=== PATIENT | female | born 1990 | race Caucasian/White ===

== ENCOUNTER 2017-09-01 14:02 | Emergency (ER) | payer OTHER ==
--- NOTE | 2017-09-01 15:31 | ERPHSYRPT ---
- History of Present Illness Time Seen by Provider: 09/01/17 14:30 Source: patient Exam Limitations: clinical condition Patient Subjective Stated Complaint: pt reports constipation x 4 days-denies n/v -reports severe pain-denies burning or itching with urination Triage Nursing Assessment: pt pink warm and dry-tearful upon arrival-holding abd -denies rebound tenderness-resp easy and nonlabored when not crying Physician History: PATIENT COMPLAINS OF CONSTIPATION FOR 4 DAYS. DENIES FEVER, NAUSEA, ABDOMINAL PAIN OR URINARY SYMPTOMS. Timing/Duration: day(s) Severity: moderate Modifying Factors: Improves With: other (ATTEMPTED BOWEL MOVEMENT) Associated Symptoms: denies symptoms Allergies/Adverse Reactions: No Known Drug Allergies Allergy (Verified 09/01/17 14:17) Home Medications: No Home Meds [No Home Meds] 1 [facility] 08/21/15 [History] Hx Tetanus, Diphtheria Vaccination/Date Given: No Hx Influenza Vaccination/Date Given: No Hx Pneumococcal Vaccination/Date Given: No Immunizations Up to Date: Yes - Review of Systems Constitutional: No Fever, No Chills Eyes: No Symptoms Ears, Nose, & Throat: No Symptoms Respiratory: No Symptoms, No Cough, No Dyspnea Cardiac: No Chest Pain, No Edema, No Syncope Abdominal/Gastrointestinal: Other (CONSTIPATION), No Abdominal Pain, No Nausea, No Vomiting, No Diarrhea Genitourinary Symptoms: No Dysuria Musculoskeletal: No Symptoms, No Back Pain, No Neck Pain Skin: No Rash Neurological: No Symptoms, No Dizziness, No Focal Weakness, No Sensory Changes Psychological: No Symptoms Endocrine: No Symptoms All Other Systems: Reviewed and Negative - Past Medical History Pertinent Past Medical History: No - Past Surgical History Past Surgical History: No - Social History Smoking Status: Never smoker Exposure to second hand smoke: No Drug Use: none Patient Lives Alone: No - Female History Hx Last Menstrual Period: current Hx Now: No - Nursing Vital Signs Nursing Vital Signs: Initial Vital Signs Temperature 98.2 F 09/01/17 14:13 Pulse Rate 73 09/01/17 14:13 Respiratory Rate 18 09/01/17 14:13 Blood Pressure 146/70 09/01/17 14:13 O2 Sat by Pulse Oximetry 97 09/01/17 14:13 Pain Scale Pain Intensity 5 - Physical Exam General Appearance: no apparent distress, alert Eye Exam: PERRL/EOMI, eyes nml inspection Ears, Nose, Throat Exam: normal ENT inspection, TMs normal, pharynx normal, moist mucous membranes Neck Exam: normal inspection, non-tender, supple, full range of motion Respiratory Exam: normal breath sounds, lungs clear, No respiratory distress Cardiovascular Exam: regular rate/rhythm, normal heart sounds, normal peripheral pulses Gastrointestinal/Abdomen Exam: soft, normal bowel sounds, other (NONTENDER), No tenderness, No mass Rectal Exam: normal rectal tone, other (MARKED FIRM STOOL IN RECTAL VAULT) Back Exam: normal inspection, normal range of motion, No CVA tenderness, No vertebral tenderness Extremity Exam: normal inspection, normal range of motion, pelvis stable Neurologic Exam: alert, oriented x 3, cooperative, normal mood/affect, nml cerebellar function, nml station & gait, sensation nml, No motor deficits Skin Exam: normal color, warm, dry, No rash Lymphatic Exam: No adenopathy SpO2 Interpretation: normal SpO2: 97 Oxygen Delivery: Room Air - Radiology Exams Abdomen X-ray Interpretation: Interpreted by me (NO EVIDENCE OF BOWEL OBSTRUCTION OR FREE AIR) Ordered Tests: Active Orders 24 hr Category Date Time Status Enema STAT Care 09/01/17 15:33 Active OBSTR/ACUTE ABDOMEN SERIES Stat Exams 09/01/17 16:57 Completed HCG,QUALITATIVE URINE Stat Lab 09/01/17 15:30 Completed UA W/ MICROSCOPIC Stat Lab 09/01/17 15:30 Completed Medication Summary Discontinued Medications Generic Name Dose Route Start Last Admin Trade Name Freq PRN Reason Stop Dose Admin Rho Immune Globulin 300 mcg 09/01/17 18:04 Rhogam Plus 300 Mcg IM 09/01/17 18:05 .ONCE ONE Lab/Rad Data: Laboratory Results 09/01/17 09/01/17 Range/Units 15:30 15:30 Ur Collection Type CCMS Urine Color YELLOW (YELLOW) Urine Appearance CLEAR (CLEAR) Urine pH 5.0 (5-6) Ur Specific [place] 1.025 (1.005-1.025) Urine Protein NEGATIVE (Negative) Urine Ketones SMALL (NEGATIVE) Urine Blood 50 (0-5) Umair/ul Urine Nitrite NEGATIVE (NEGATIVE) Urine Bilirubin NEGATIVE (NEGATIVE) Urine Urobilinogen NORMAL (0-1) mg/dL Ur Leukocyte Esterase NEGATIVE (NEGATIVE) Urine Microscopic RBC 0-2 (0-2) /HPF Urine Microscopic WBC 0-2 (0-5) /HPF Ur Epithelial Cells FEW (FEW) /HPF Amorphous Crystals FEW (NEGATIVE) /HPF Urine Mucus SLIGHT (NEGATIVE) /HPF Urine Culture Reflexed NO (NO) Urine Glucose NEGATIVE (NEGATIVE) mg/dL Urine HCG, Qual NEGATIVE (Negative) Specimen Received 09-01-17 1600 - Progress Progress: improved Progress Note: 09/01/17 17:58 ADMINISTERED SOAP SUDS ENEMA WITH MODERATE RESULTS Counseled pt/family regarding: lab results, diagnosis, need for follow-up, rad results - Departure Time of Disposition: 18:14 Departure Disposition: Home Clinical Impression: CONSTIPATION Condition: Stable Critical Care Time: No Referrals: SHAYE CROWELL [Primary Care Provider] - Additional Instructions: TAKE 1/2 BOTTLE OF MAGNESIUM CITRATE DAILY FOR 2 DAYS. CONTINUE STOOL SOFTNER 2 -3 TIMES DAILY
[2017-09-01 15:45] VITALS: BP 122/62
[2017-09-01 15:46] VITALS: PULSE 88
[2017-09-01 16:10] LABS: Amourphous Crystal FEW /HPF (NEGATIVE); Appearance CLEAR (CLEAR); Bilirubin NEGATIVE (NEGATIVE); Blood 50 Ery/ul (0-5); Epithelial Cells FEW /HPF (FEW); Glucose NEGATIVE (NEGATIVE); Ketones SMALL (NEGATIVE); Leukocyte Esterase NEGATIVE (NEGATIVE); Mucus SLIGHT /HPF (NEGATIVE); Nitrite NEGATIVE (NEGATIVE); Protein,Urine Dip NEGATIVE (Negative); RBC 0-2 /HPF (0-2); Specific Gravity 1.025 (1.005-1.025); Urobilinogen NORMAL mg/dL (0-1); WBC 0-2 /HPF (0-5)
--- NOTE | 2017-09-01 17:07 | XRAY ---
Indication: Constipation. Comparison: Chest exam June 17, 2007. 2 views of the abdomen demonstrates mild air distended small bowel loops and transverse colon with mild fluid leveling, ileus versus enterocolitis. Solid organs and osseous structures unremarkable. PA chest again demonstrates normal heart, lungs, and bony thorax.
[2017-09-01 18:03] VITALS: O2SAT 97
[2017-09-01] MEDS ORDERED: Rhogam Plus 300 MCG IM ONE (18:04)
== END 2017-09-01 18:15 | disposition home or self-care (01) ==
LOC: ED 14:02
DX: K59.00 Constipation, unspecified (principal)
CPT/HCPCS: 74022; 81000; 84703; 99283; 99284; J2790

== ENCOUNTER 2018-06-13 13:54 | Emergency (ER) | payer MEDICAID, OTHER ==
[2018-06-13 14:12] VITALS: BP 114/55; PULSE 78; O2SAT 98
--- NOTE | 2018-06-13 14:56 | ERPHSYRPT ---
- History of Present Illness Time Seen by Provider: 06/13/18 14:50 Source: patient Exam Limitations: no limitations Patient Subjective Stated Complaint: pt reports not feeling baby move as often as she ought to. pt states she is 19 weeks with brittany of 11/07/18. pt reports starting to feel baby move approx 2 weeks ago, but has not been feeling move daily. pt states "i feel like baby should be moving more". . denies vaginal bleeding or changes in discharge. denies pain. pt adds "i've been having migrains 3xweek" Triage Nursing Assessment: pink/warm/dry,resp easy, a&ox4, steady gait, no distress noted at this time. Physician History: The patient is a 28-year-old female at 19 weeks with her complaining that she doesn't feel her baby move as much as she thinks it should. She does feel it move daily. She hasn't seen an OB doctor since 11 weeks. She has not had appropriate insurance until recently. She is scheduled to see her OB doctor on 06/22/18. She denies cramping or vaginal discharge. She is having no problems. She is just becoming worried because she hasn't heard the heartbeat at a doctor's visit in a long time. Timing/Duration: today Severity: mild Modifying Factors: Improves With: nothing Associated Symptoms: denies symptoms Allergies/Adverse Reactions: No Known Drug Allergies Allergy (Verified 06/13/18 14:01) Hx Tetanus, Diphtheria Vaccination/Date Given: Yes Hx Influenza Vaccination/Date Given: No Hx Pneumococcal Vaccination/Date Given: No Immunizations Up to Date: Yes - Review of Systems Constitutional: No Fever, No Chills Eyes: No Symptoms Ears, Nose, & Throat: No Symptoms Respiratory: No Cough, No Dyspnea Cardiac: No Chest Pain, No Edema, No Syncope Abdominal/Gastrointestinal: No Abdominal Pain, No Nausea, No Vomiting, No Diarrhea Genitourinary Symptoms: No Dysuria Musculoskeletal: No Back Pain, No Neck Pain Skin: No Rash Neurological: No Dizziness, No Focal Weakness, No Sensory Changes Psychological: No Symptoms Endocrine: No Symptoms Hematologic/Lymphatic: No Symptoms Immunological/Allergic: No Symptoms All Other Systems: Reviewed and Negative - Past Medical History Pertinent Past Medical History: Yes Psycho-Social History: Depression - Past Surgical History Past Surgical History: No - Social History Smoking Status: Never smoker Exposure to second hand smoke: No Drug Use: marijuana Patient Lives Alone: No - Female History Hx Last Menstrual Period: "2nd week of january" Hx Now: Yes Expected Date of Delivery: 11/07/18 Gestational Age: 19 weeks - Nursing Vital Signs Nursing Vital Signs: Initial Vital Signs Temperature 98.4 F 06/13/18 14:03 Pulse Rate 78 06/13/18 14:03 Respiratory Rate 16 06/13/18 14:03 Blood Pressure 114/55 06/13/18 14:03 O2 Sat by Pulse Oximetry 98 06/13/18 14:03 Pain Scale Pain Intensity 0 - Physical Exam General Appearance: no apparent distress, alert Eye Exam: PERRL/EOMI, eyes nml inspection Ears, Nose, Throat Exam: normal ENT inspection, TMs normal, pharynx normal, moist mucous membranes Neck Exam: normal inspection, non-tender, supple, full range of motion Respiratory Exam: normal breath sounds, lungs clear, No respiratory distress Cardiovascular Exam: regular rate/rhythm, normal heart sounds, normal peripheral pulses Gastrointestinal/Abdomen Exam: soft, normal bowel sounds, No tenderness, No mass Pelvic Exam: not done Rectal Exam: not done Back Exam: normal inspection, normal range of motion, No CVA tenderness, No vertebral tenderness Extremity Exam: normal inspection, normal range of motion, pelvis stable Neurologic Exam: alert, oriented x 3, cooperative, normal mood/affect, nml cerebellar function, nml station & gait, sensation nml, No motor deficits Skin Exam: normal color, warm, dry, No rash Lymphatic Exam: No adenopathy SpO2 Interpretation: normal SpO2: 98 O2 Delivery: Room Air - Progress Progress Note: 06/13/18 15:00 FHT 172 by doppler. - Departure Time of Disposition: 15:00 Departure Disposition: Home Clinical Impression: Condition: Stable Critical Care Time: No Referrals: DONAVAN MCKEON MD [Primary Care Provider] - Additional Instructions: You are and we heard the heart by Doppler at 172 bpm. Please follow-up with your OB doctor as scheduled on 06/22/18.
== END 2018-06-13 15:09 | disposition home or self-care (01) ==
LOC: ED 13:54
DX: Z34.92 Encounter for supervision of normal pregnancy, unspecified, second trimester (principal)
CPT/HCPCS: 99283

== ENCOUNTER 2018-10-27 04:49 | Inpatient (IN) | payer OTHER ==
[2018-10-27] MEDS ORDERED: PITOCIN 30 UNITS/ LR 500 ML 500 ML IV SCH ×2 (05:00)
[2018-10-27] MEDS ORDERED: BRETHINE 1 MG/ML SQ PRN (05:00)
[2018-10-27 05:23] LABS: Hematocrit 40.6 % (35-47); Hemoglobin 14.1 gm/dl (12.0-16.0); Mean Cell Volume 94.6 fl (78-100); Mean Corpuscular Hemoglobin 32.9 pg (26-32); Mean Corpuscular Hgb Concent. 34.7 g/dl (32-36); Mean Platelet Volume 11.9 fl (6-9.5); Platelet Count 166 K/mm3 (150-450); Red Blood Count 4.29 M/mm3 (4.1-5.4); Red Cell Distribution Width 13.4 % (11.5-14.0); White Blood Count 12.5 K/mm3 (4.0-10.5)
[2018-10-27 05:50] LABS: BAND 1 % (0.0-2.0); Lymphocytes 12 % (24-44); Monocyte 6 % (0.0-12.0); Neutrophils 81 % (36.0-66.0); Platelet Estimate NORMAL (NORMAL); Total Cells Counted 100
[2018-10-27] MEDS: Lactated Ringers 1,000 ML IV SCH ×2 (06:00→21:28)
[2018-10-27 08:00] LABS: Amphetamine,Urine NEGATIVE (NEGATIVE); Barbiturate,Urine NEGATIVE (NEGATIVE); Benzodiazepine,Urine NEGATIVE (NEGATIVE); Cocaine,Urine NEGATIVE (NEGATIVE); Methadone,Urine NEGATIVE (NEGATIVE); Opiate,Urine NEGATIVE (NEGATIVE); PCP,Urine NEGATIVE (NEGATIVE); THC,Urine POSITIVE (NEGATIVE)
[2018-10-27] MEDS ORDERED: Ephedrine Sulfate 50 MG/ML IV PRN (09:45)
[2018-10-27] MEDS ORDERED: Lactated Ringers 1,000 ML IV ONE (09:45)
[2018-10-27] MEDS ORDERED: XYLOCAINE 2%/Epi 1:200000 20ML VIAL MPF IJ SCH (10:00)
[2018-10-27] MEDS: OB EPIDURAL NAROPIN/SUFENTANIL IN NACL EPIDURAL PRN ×2 (10:14→19:45)
[2018-10-27 13:32] VITALS: O2SAT 100
[2018-10-27] MEDS ORDERED: XYLOCAINE 1% HCL 20 ML MDV ONE (23:51)
[2018-10-28] MEDS ORDERED: LANSINOH 40 GM TOP PRN (00:54)
[2018-10-28] MEDS ORDERED: Dulcolax 10 MG SUPP PR PRN (00:54)
[2018-10-28] MEDS ORDERED: CORTISONE 1% CREAM TP PRN (00:54)
[2018-10-28] MEDS ORDERED: Dermoplast Spray TP PRN (00:54)
[2018-10-28] MEDS ORDERED: TYLENOL EXTRA STRENGTH 500 MG PO PRN (00:54)
[2018-10-28] MEDS ORDERED: Anucort-HC SUPPOSITORY PR PRN (00:54)
[2018-10-28] MEDS ORDERED: TUCKS TP PRN (00:54)
[2018-10-28] MEDS ORDERED: Mylicon 80MG PO PRN (00:54)
[2018-10-28] MEDS: NORCO 5/325 MG PO PRN ×4 (02:56→21:04)
[2018-10-28] MEDS ORDERED: Adacel Vial IM ONE (10:00)
[2018-10-28] MEDS: FERREX 150 PO SCH (11:30)
[2018-10-28] MEDS: Colace 100 MG PO SCH ×2 (11:30→21:04)
[2018-10-28] MEDS: MOTRIN 400 MG PO PRN ×2 (11:38→17:42)
[2018-10-28 12:37] LABS: BASOPHIL % 0.2 % (0.0-0.4); Basophil (Absolute #) 0.02 (0-0.4); Eosinophil % 0.3 % (0.00-5.0); Eosinophil (Absolute #) 0.04 (0-0.5); Granulocyte Absolute (ANC) 8.37 (1.4-6.9); Granulocytes % 70.5 % (36.0-66.0); Hematocrit 37.1 % (35-47); Hemoglobin 12.8 gm/dl (12.0-16.0); Lymphocyte (Absolute #) 2.41 (1.0-4.6); Lymphocytes % 20.3 % (24.0-44.0); Mean Cell Volume 95.6 fl (78-100); Mean Corpuscular Hgb Concent. 34.5 g/dl (32-36); Mean Platelet Volume 11.7 fl (6-9.5); Monocyte (Absolute #) 1.03 (0.0-1.3); Monocytes % 8.7 % (0.0-12.0); Platelet Count 125 K/mm3 (150-450); Red Blood Count 3.88 M/mm3 (4.1-5.4); Red Cell Distribution Width 13.2 % (11.5-14.0); White Blood Count 11.9 K/mm3 (4.0-10.5)
[2018-10-28 12:38] LABS: Mean Corpuscular Hemoglobin 32.9 pg (26-32)
[2018-10-29] MEDS: MOTRIN 400 MG PO PRN (01:01)
[2018-10-29] MEDS: NORCO 5/325 MG PO PRN ×3 (04:35→14:10)
[2018-10-29] MEDS: FERREX 150 PO SCH (09:22)
[2018-10-29] MEDS: Colace 100 MG PO SCH (09:22)
[2018-10-29] MEDS ORDERED: PROVENTIL COMMON CANISTER IH PRN (09:29)
--- NOTE | 2018-10-29 09:30 | PCM.NOTE ---
Date and Time: 10/29/18926 Subjective Assessment: This morning pt is c/o pain in the lateral proximal thighs and bilat lower back. It predated the but has gotten worse. Better with norco and ibuprofen. - Review of Systems Constitutional: No Fever Respiratory: Cough Objective Exam General Appearance: no apparent distress, alert, obese Neurologic Exam: oriented x 3, cooperative Skin Exam: normal color, warm, dry, No rash Ears, Nose, Throat Exam: moist mucous membranes Respiratory Exam: normal breath sounds, wheezing, No crackles/rales, No rhonchi Cardiovascular Exam: regular rate/rhythm, normal heart sounds, No murmur Gastrointestinal/Abdomen Exam: soft, tenderness (mild), other (fundus firm under umbilicus) Extremity Exam: normal inspection, No pedal edema, No swelling OBJECTIVE DATA Vital Signs: Vital Signs - 24 hr Temp Pulse Resp BP 10/29/18 03:00 97.8 F 81 20 116/54 10/28/18 20:00 98.3 F 82 20 152/65 10/28/18 14:00 97.9 F 90 20 135/63 Pain Assessment - Last Documented Pain Intensity [Anterior/ 4 Posterior] Pain Intensity 4 Pain Scale Used 0-10 Pain Scale Intake and Output: Intake & Output 10/26/18 10/27/18 10/28/18 10/29/18 11:59 11:59 11:59 11:59 Intake Total 2824 1800 Output Total 1300 Balance 1524 1800 Weight 117.934 kg Lab Results: Lab Results-Last 24 Hours 10/28/18 Range/Units 12:00 WBC 11.9 H (4.0-10.5) K/mm3 RBC 3.88 L (4.1-5.4) M/mm3 Hgb 12.8 (12.0-16.0) gm/dl Hct 37.1 (35-47) % MCV 95.6 (78-100) fl MCH 32.9 H (26-32) pg MCHC 34.5 (32-36) g/dl RDW 13.2 (11.5-14.0) % Plt Count 125 L (150-450) K/mm3 MPV 11.7 H (6-9.5) fl Gran % 70.5 H (36.0-66.0) % Eos # (Auto) 0.04 (0-0.5) Absolute Lymphs (auto) 2.41 (1.0-4.6) Absolute Monos (auto) 1.03 (0.0-1.3) Lymphocytes % 20.3 L (24.0-44.0) % Monocytes % 8.7 (0.0-12.0) % Eosinophils % 0.3 (0.00-5.0) % Basophils % 0.2 (0.0-0.4) % Absolute Granulocytes 8.37 H (1.4-6.9) Basophils # 0.02 (0-0.4) Assessment/Plan (1) Vaginal delivery Current Visit: Yes Status: Acute Code(s): O80 - ENCOUNTER FOR FULL-TERM UNCOMPLICATED DELIVERY (2) Low back pain Current Visit: Yes Status: Acute Qualifiers: Chronicity: chronic Back pain laterality: bilateral Sciatica presence: without sciatica Qualified Code(s): M54.5 - Low back pain; G89.29 - Other chronic pain Assessment & Plan: exercises printed, most probably appropriate for later in her recover. Continue meds, try heat. Code(s): M54.5 - LOW BACK PAIN (3) Wheezing Current Visit: Yes Status: Acute Code(s): R06.2 - WHEEZING
--- NOTE | 2018-10-29 13:14 | PCM.DS ---
Discharge Summary Date of Admission: 10/27/18 09:30 Admitting Physician: DONAVAN MCKEON Primary Care Provider: DONAVAN MCKEON Allergies Allergies No Known Drug Allergies Allergy (Verified 06/13/18 14:01) Hospital Summary - Hospital Course Hospital Course: Pt came in 28 yo at 38w 4d in spontaneous labor. Fluid was meconium stained. She easily delivered a viable 9lb 1 oz baby boy (for full details, see Dr. Mckeon' delivery note). Mom is complaining of some bilat lower back pain and bilat pain in the proximal thighs laterally. This pain is chronic but worse with and delivery. She has been taking ibuprofen and tylenol for pain. Post her hgb is 12.8. She is . labs: GBS neg, O+, Ab neg. RPR, HBsAg, HepCAb, HIV negative. NG/CT neg. Rubella Immune. Failed 1 hr OGTT. Baby to be transferred to NICU today with tachypnea, rule out sepsis. Mom to be discharged early in order to follow him up to [facility] ([facility]). - Vitals & Intake/Output Vital Signs: Vital Signs Temperature 97.8 F 10/29/18 03:00 Pulse Rate 81 10/29/18 03:00 Respiratory Rate 20 10/29/18 03:00 Blood Pressure 116/54 10/29/18 03:00 O2 Sat by Pulse Oximetry 100 10/27/18 13:15 Intake & Output: Intake & Output 10/27/18 10/28/18 10/29/18 10/30/18 11:59 11:59 11:59 11:59 Intake Total 2824 1800 Output Total 1300 Balance 1524 1800 Weight 117.934 kg - Lab Result Diagrams: 10/28/18 12:00 Micro Results-Entire Visit: Microbiology 10/27/18 Unknown Urine Culture - Final Catherized NO GROWTH - Procedures and Test Procedures and Tests throughout Hospitalization: Therapy Orders & Screens 10/28/18 02:07 Standby Routine Comment: Diagnosis: Induction of Labor 10/29/18 09:29 Respiratory MDI QID Comment: Diagnosis: Induction of Labor Discharge Exam General Appearance: no apparent distress, alert Neurologic Exam: oriented x 3, cooperative Ears, Nose, Throat Exam: moist mucous membranes Respiratory Exam: normal breath sounds, wheezing (scattered), No crackles/rales , No rhonchi Cardiovascular Exam: regular rate/rhythm, normal heart sounds, No murmur Gastrointestinal/Abdomen Exam: soft, tenderness (mild ttp), other (fundus firm under umbilicus) Extremity Exam: normal inspection, No pedal edema, No swelling Skin Exam: normal color, warm, dry, No rash Final Diagnosis/Problem List - Final Discharge Diagnosis/Problem (1) Vaginal delivery Current Visit: Yes Status: Acute Assessment & Plan: she is recovering well. Will be 48h post delivery just after midnight but will d/c home now since her baby is going to the NICU now. Code(s): O80 - ENCOUNTER FOR FULL-TERM UNCOMPLICATED DELIVERY (2) Low back pain Current Visit: Yes Status: Acute Code(s): M54.5 - LOW BACK PAIN (3) Wheezing Current Visit: Yes Status: Acute Assessment & Plan: inhaler will be ordered at pharmacy. Code(s): R06.2 - WHEEZING - Discharge Disposition: Home, Self-Care Condition: Good Prescriptions: New Albuterol Sulfate [Albuterol Sulfate Hfa] 8.5 gm IH Q4H PRN #1 [id number] PRN Reason: cough/wheeze Ibuprofen 600 mg PO TID PRN #35 tablet PRN Reason: Pain Hydrocodone/APAP 5-325 Tab^^^ [[place] 5-325 Tablet^^^] 1 each PO Q4H PRN #30 tablet MDD 6 PRN Reason: Severe Pain Continue Vits W-Ca,Fe,FA(<1Mg) [] 1 tab PO DAILY Follow up with: DONAVAN MCKEON MD [Primary Care Provider] - 1 Week
[2018-10-29 16:20] VITALS: BP 132/69
[2018-10-29 17:11] VITALS: PULSE 95
== END 2018-10-29 14:10 | disposition home or self-care (01) | DRG 807 ==
LOC: OB 04:49 → OBSVTOIN 09:30
PROVIDERS: ADMIT Family Medicine; ATTEND Family Medicine
PROC: 10E0XZZ Delivery of Products of Conception, External Approach (ICD-10-PCS; principal; 2018-10-28)
DX: O80 Encounter for full-term uncomplicated delivery (principal); Z37.0 Single live birth; Z3A.38 38 weeks gestation of pregnancy; M54.5 Low back pain; R06.2 Wheezing
CPT/HCPCS: 36415; 76805; 80307; 81003; 85025; 87086; 87340; 90715; 94799; 96372; G0378; J2590; J2795; A9270-GY

== ENCOUNTER 2024-01-05 20:15 | Emergency (ER) | payer OTHER ==
--- NOTE | 2024-01-05 22:10 | ERPHSYRPT ---
- History of Present Illness Time Seen by Provider: 01/05/24 21:55 Source: patient Exam Limitations: no limitations Patient Subjective Stated Complaint: swelling in bilat. lower extremeties. Triage Nursing Assessment: Pt brought to ED by with c/o of swelling in bilateral lower extremeties, rates pain 4/10. vitals wnl, skin warm and dry, p ulses normal, gait steady, denies taking medications at home, patient doesn't appear to be in any distress at this time. Physician History: 33-year-old female no significant past medical history presents to emergency department for evaluation of bilateral lower extremity swelling over a week's time. Patient states the swelling has gotten progressively worse. Mild shortn ess of breath. No nausea vomiting or diaphoresis. Patient denied pain to Dr. Nichols however he she informed nurse that she had pain rated 4. Negative Kizzy bilaterally. Patient states her legs were swollen 1 time before and that during her last . Patient states she has otherwise been well. Patient works at [employer] and states she stands on her feet all day long. But this level of swelling is unusual. at bedside. They voiced no other complaints or concerns at this time. Portions of this note were created with voice recognition technology. There may be grammatical, spelling, punctuation or sound alike errors Timing/Duration: week(s) (1 week) Severity: moderate Modifying Factors: Improves With: nothing Associated Symptoms: shortness of breath (Mild shortness of breath) Allergies/Adverse Reactions: No Known Drug Allergies Allergy (Verified 01/05/24 21:50) Home Medications: No Reportable Medications [No Reported Medications] 01/05/24 [History] Hx Tetanus, Diphtheria Vaccination/Date Given: No Hx Influenza Vaccination/Date Given: No Hx Pneumococcal Vaccination/Date Given: No Travel Risk - International Travel Have you traveled outside of the country in past 3 weeks: No - Emerging Infectious Disease Are you exhibiting symptoms associated with any current EIDs: No - Review of Systems Constitutional: No Symptoms, No Fever, No Chills Eyes: No Symptoms Ears, Nose, & Throat: No Symptoms Respiratory: No Symptoms, No Cough, No Dyspnea Cardiac: No Symptoms, No Chest Pain, No Edema, No Syncope Abdominal/Gastrointestinal: No Symptoms, No Abdominal Pain, No Nausea, No Vomiting, No Diarrhea Genitourinary Symptoms: No Symptoms, No Dysuria Musculoskeletal: No Symptoms, No Back Pain, No Neck Pain Skin: No Symptoms, No Rash Neurological: No Symptoms, No Dizziness, No Focal Weakness, No Sensory Changes Psychological: No Symptoms Endocrine: No Symptoms Hematologic/Lymphatic: No Symptoms All Other Systems: Reviewed and Negative - Past Medical History Pertinent Past Medical History: Yes Neurological History: No Pertinent History ENT History: No Pertinent History Cardiac History: No Pertinent History Respiratory History: Asthma Endocrine Medical History: No Pertinent History Musculoskeletal History: No Pertinent History GI Medical History: No Pertinent History History: No Pertinent History Psycho-Social History: Anxiety, Depression Female Reproductive Disorders: No Pertinent History - Past Surgical History Past Surgical History: No - Female History Hx Last Menstrual Period: last week Hx Now: No - Social History Smoking Status: Never smoker Exposure to second hand smoke: No Drug Use: none Patient Lives Alone: No - Social Determinants of Health Will the patient participate in the screening: Yes Do you worry about a steady place to live?: No Do you have any problems with any of the following?: No known problems In the past 12 months,have you had to go without utilities?: No Transportation Issues: No Has anyone in your support network made you feel unsafe?: No Have you or anyone in your house had to go without enough: No - Nursing Vital Signs Nursing Vital Signs: Initial Vital Signs Pulse Rate 77 01/05/24 21:38 Blood Pressure 109/63 01/05/24 21:38 O2 Sat by Pulse Oximetry 98 01/05/24 21:38 Pain Scale Pain Intensity 4 - Physical Exam General Appearance: no apparent distress, alert Eye Exam: PERRL/EOMI, eyes nml inspection Ears, Nose, Throat Exam: normal ENT inspection, TMs normal, pharynx normal, moist mucous membranes Neck Exam: normal inspection, non-tender, supple, full range of motion Respiratory Exam: normal breath sounds, lungs clear, airway intact, No respiratory distress Cardiovascular Exam: regular rate/rhythm, normal heart sounds, normal peripheral pulses Gastrointestinal/Abdomen Exam: soft, normal bowel sounds, No tenderness, No mass Back Exam: normal inspection, normal range of motion, No CVA tenderness, No vertebral tenderness Extremity Exam: normal inspection, normal range of motion, pelvis stable, other (Negative Homans' sign bilaterally) Neurologic Exam: alert, oriented x 3, cooperative, normal mood/affect, nml cerebellar function, nml station & gait, sensation nml, No motor deficits Skin Exam: normal color, warm, dry, No rash Lymphatic Exam: No adenopathy SpO2 Interpretation: normal SpO2: 98 O2 Delivery: Room Air - Course Nursing assessment & vital signs reviewed: Yes EKG Interpreted by Me: RATE (65), Sinus Rhythm, NORMAL AXIS, NORMAL INTERVALS, NORMAL QRS - Radiology Exams Chest X-ray Interpretation: Teleradiologist Report (No acute cardiopulmonary process observed) Ordered Tests: Active Orders 24 hr Category Date Time Status Physician Support Coordinator STAT Care 01/05/24 22:07 Active EKG-ER Only STAT Care 01/05/24 22:06 Active IV Insertion STAT Care 01/05/24 22:06 Active Pulse Oximetry (ED) STAT Care 01/05/24 22:06 Active CHEST 1 VIEW (PORTABLE) Stat Exams 01/05/24 23:26 Completed CBC W DIFF Stat Lab 01/05/24 22:22 Completed CMP Stat Lab 01/05/24 22:22 Completed D-DIMER QUANTITATIVE Stat Lab 01/05/24 22:22 Completed NT PRO BNPII Stat Lab 01/05/24 22:22 Completed TROPONIN Q4H Lab 01/05/24 22:22 Completed TROPONIN Q4H Lab 01/06/24 00:43 Completed TROPONIN Q4H Lab 01/06/24 06:15 Ordered UA W/RFX UR CULTURE Stat Lab 01/05/24 22:45 Completed Lab/Rad Data: Laboratory Result Diagrams 01/05/24 22:22 01/05/24 22:22 Laboratory Results 01/06/24 01/05/24 01/05/24 Range/Units 00:43 22:45 22:22 WBC (3.98-10.04) x10^3/uL RBC (3.93-5.22) x10^6/uL Hgb (11.2-15.7) g/dL Hct (34.1-44.9) % MCV (79.4-94.8) fL MCH (25.6-32.2) pg MCHC (32.2-35.5) g/dL RDW (11.7-14.4) % Plt Count (182-369) x10^3/uL MPV (9.4-12.3) fL Gran % (34.0-71.1) % Immature Gran % (Auto) (0.001-0.429) % Nucleat RBC Rel Count (0.00-0.2) % Eos # (Auto) (0.04-0.36) x10^3/uL Immature Gran # (Auto) (0.001-0.031) x10^3u/L Absolute Lymphs (auto) (1.18-3.74) x10^3/uL Absolute Monos (auto) (0.24-0.86) x10^3/uL Absolute Nucleated RBC (0.00-0.012) x10^3u/L Lymphocytes % (19.3-51.7) % Monocytes % (4.7-12.5) % Eosinophils % (0.7-5.8) % Basophils % (0.1-1.2) % Absolute Granulocytes (1.56-6.13) x10^3/uL Basophils # (0.01-0.08) x10^3/uL D-Dimer (0.0-0.50) mg/L Sodium (135-145) mmol/L Potassium (3.5-5.1) mmol/L Chloride (98-107) mmol/L Carbon Dioxide (22-30) mmol/L Anion Gap (5-15) MEQ/L BUN (7-17) mg/dL Creatinine (0.52-1.04) mg/dL Estimated GFR ML/MIN Glucose (74-106) mg/dL Calcium (8.4-10.2) mg/dL Total Bilirubin (0.2-1.3) mg/dL AST (14-36) U/L ALT (0-35) U/L Alkaline Phosphatase (38-126) U/L Troponin I < 0.012 < 0.012 (0.000-0.033) ng/mL NT-Pro-B Natriuret Pep 85.4 (<300) pg/mL Serum Total Protein (6.3-8.2) g/dL Albumin (3.5-5.0) g/dL Urine Color Yellow (Yellow) Urine Appearance Clear (Clear) Urine pH 7.0 (4.6-8.0) Ur Specific Phenix 1.015 (1.005-1.030) Urine Protein Negative (Negative) Urine Glucose (UA) Negative (Negative) mg/dL Urine Ketones Negative (Negative) Urine Blood Negative (Negative) Urine Nitrite Negative (Negative) Urine Bilirubin Negative (Negative) Urine Urobilinogen 1.0 A (0.2) mg/dL Ur Leukocyte Esterase Negative (Negative) U Hyaline Cast (Auto) NONE SEEN (0-2) /LPF Urine Microscopic RBC 0-2 (0-5) /HPF Urine Microscopic WBC 0-2 (0-5) /HPF Ur Epithelial Cells None Seen (None Seen) /HPF Urine Bacteria None Seen (None Seen) /HPF Urine Culture Reflexed NO (NO) 01/05/24 01/05/24 01/05/24 Range/Units 22:22 22:22 22:22 WBC 6.1 (3.98-10.04) x10^3/uL RBC 4.07 (3.93-5.22) x10^6/uL Hgb 12.4 (11.2-15.7) g/dL Hct 38.4 (34.1-44.9) % MCV 94.3 (79.4-94.8) fL MCH 30.5 (25.6-32.2) pg MCHC 32.3 (32.2-35.5) g/dL RDW 12.3 (11.7-14.4) % Plt Count 189 (182-369) x10^3/uL MPV 11.0 (9.4-12.3) fL Gran % 56.3 (34.0-71.1) % Immature Gran % (Auto) 0.5 H (0.001-0.429) % Nucleat RBC Rel Count 0.0 (0.00-0.2) % Eos # (Auto) 0.25 (0.04-0.36) x10^3/uL Immature Gran # (Auto) 0.03 (0.001-0.031) x10^3u/L Absolute Lymphs (auto) 1.95 (1.18-3.74) x10^3/uL Absolute Monos (auto) 0.39 (0.24-0.86) x10^3/uL Absolute Nucleated RBC 0.00 (0.00-0.012) x10^3u/L Lymphocytes % 32.2 (19.3-51.7) % Monocytes % 6.4 (4.7-12.5) % Eosinophils % 4.1 (0.7-5.8) % Basophils % 0.5 (0.1-1.2) % Absolute Granulocytes 3.41 (1.56-6.13) x10^3/uL Basophils # 0.03 (0.01-0.08) x10^3/uL D-Dimer 0.20 (0.0-0.50) mg/L Sodium 140 (135-145) mmol/L Potassium 4.3 (3.5-5.1) mmol/L Chloride 102 (98-107) mmol/L Carbon Dioxide 31 H (22-30) mmol/L Anion Gap 10.7 (5-15) MEQ/L BUN 14 (7-17) mg/dL Creatinine 0.87 (0.52-1.04) mg/dL Estimated GFR 91.3 ML/MIN Glucose 127 H (74-106) mg/dL Calcium 9.5 (8.4-10.2) mg/dL Total Bilirubin 0.30 (0.2-1.3) mg/dL AST 26 (14-36) U/L ALT 33 (0-35) U/L Alkaline Phosphatase 62 (38-126) U/L Troponin I (0.000-0.033) ng/mL NT-Pro-B Natriuret Pep (<300) pg/mL Serum Total Protein 6.4 (6.3-8.2) g/dL Albumin 3.8 (3.5-5.0) g/dL Urine Color (Yellow) Urine Appearance (Clear) Urine pH (4.6-8.0) Ur Specific Phenix (1.005-1.030) Urine Protein (Negative) Urine Glucose (UA) (Negative) mg/dL Urine Ketones (Negative) Urine Blood (Negative) Urine Nitrite (Negative) Urine Bilirubin (Negative) Urine Urobilinogen (0.2) mg/dL Ur Leukocyte Esterase (Negative) U Hyaline Cast (Auto) (0-2) /LPF Urine Microscopic RBC (0-5) /HPF Urine Microscopic WBC (0-5) /HPF Ur Epithelial Cells (None Seen) /HPF Urine Bacteria (None Seen) /HPF Urine Culture Reflexed (NO) - Progress Progress: improved Progress Note: 33-year-old female presents to our ED for evaluation of bilateral lower extremity swelling x 1 week. No chest pain. No shortness of breath at this time. Physical exam reveals 1+ pitting edema. Negative Kizzy bilaterally. Both lower extremities neurovascular tact distally compartments are soft cap refill less than 2 seconds. Patient is active. No history of PE DVT. No active shortness of breath. Occasional mild shortness of breath. Patient works at [employer] and stands on her feet for prolonged periods of time. Laboratory workup reveals normal kidney function. No proteinuria. Normal albumin level. Normal BNP. Chest x-ray negative for edema. Patient resting comfortably. Vitals are normal. At this point it appears that patient swelling is benign. Bilateral compression garments provided. Patient will follow-up with her primary care doctor for further evaluation and treatment. She voices no other complaints at this time. Will discharge home. D-dimer negative. Troponin negative x 2. EKG normal sinus rhythm Portions of this note were created with voice recognition technology. There may be grammatical, spelling, punctuation or sound alike errors Complexity of problem addressed moderate acute complicated. No critical care time. Complex of data reviewed and analyzed is moderate. Test ordered test reviewed results analyzed and correlated clinically with history and physical exam. Risk of complication and or risk of morbidity/mortality patient management is low. Vital stable. Time spent to discharge patient approximately 20 minutes. Plan of care established for shared decision making. No social determinants of health present to impede follow-up. Portions of this note were created with voice recognition technology. There may be grammatical, spelling, punctuation or sound alike errors 01/06/24 01:01 01/06/24 01:04 Counseled pt/family regarding: lab results, diagnosis, need for follow-up, rad results - Departure Departure Disposition: Home Clinical Impression: Leg swelling Condition: Stable Critical Care Time: No Referrals: DONAVAN MCKEON MD [ACTIVE STAFF] - Follow up/PCP as directed Additional Instructions: Discharge/Care Plan BRANDICAMDEN JOSE was seen on 01/06/24 in the Emergency Room. The patient was counseled regarding Diagnosis,Lab results, Imaging studies, need for follow up and when to return to the Emergency Room. Prescriptions given: Discharge Note I have spoken with the patient and/or caregivers. I have explained the patient's condition, diagnosis and treatment plan based on the information available to me at this time. I have answered the patient's and/or caregiver's questions and addressed any concerns. The patient and/or caregivers have as good understanding of the patient's diagnosis, condition and treatment plan as can be expected at this point. The vital signs have been stable. The patient's condition is stable and appropriate for discharge from the emergency department. The patient will pursue further outpatient evaluation with the primary care physician or other designated or consulting physician as outlined in the discharge instructions. The patient and/or caregivers are agreeable to this plan of care and follow-up instructions have been explained in detail. The patient and/or caregivers have received these instruction. The patient/and or caregivers are aware that any significant change in condition or worsening of symptoms should prompt an immediate return to this or the closest emergency department or call 911.
[2024-01-05 22:27] LABS: Absolute Neutrophil Ct (ANC) 3.41 x10^3/uL (1.56-6.13); BASOPHIL % 0.5 % (0.1-1.2); Basophil (Absolute #) 0.03 x10^3/uL (0.01-0.08); Eosinophil % 4.1 % (0.7-5.8); Eosinophil (Absolute #) 0.25 x10^3/uL (0.04-0.36); Hematocrit 38.4 % (34.1-44.9); Hemoglobin 12.4 g/dL (11.2-15.7); IMMATURE GRAN # 0.03 x10^3u/L (0.001-0.031); IMMATURE GRAN % 0.5 % (0.001-0.429); Lymphocyte (Absolute #) 1.95 x10^3/uL (1.18-3.74); Lymphocytes % 32.2 % (19.3-51.7); Mean Cell Volume 94.3 fL (79.4-94.8); Mean Corpuscular Hemoglobin 30.5 pg (25.6-32.2); Mean Corpuscular Hgb Concent. 32.3 g/dL (32.2-35.5); Monocyte (Absolute #) 0.39 x10^3/uL (0.24-0.86); Monocytes % 6.4 % (4.7-12.5); Neutrophil % 56.3 % (34.0-71.1); Platelet Count 189 x10^3/uL (182-369); Red Blood Count 4.07 x10^6/uL (3.93-5.22); Red Cell Distribution Width 12.3 % (11.7-14.4); White Blood Count 6.1 x10^3/uL (3.98-10.04)
[2024-01-05 22:40] LABS: ALBUMIN 3.8 g/dL (3.5-5.0); ANION GAP 10.7 MEQ/L (5-15); BILIRUBIN,TOTAL 0.3 mg/dL (0.2-1.3); Calcium 9.5 mg/dL (8.4-10.2); Creatinine 1 0.87 mg/dL (0.52-1.04); EST GLOMERULAR FILTRATION RATE 91.3 ML/MIN; Potassium 4.3 mmol/L (3.5-5.1); Total Protein 6.4 g/dL (6.3-8.2)
[2024-01-05 22:52] LABS: NT PRO BNPII 85.4 pg/mL (<300); TROPONIN < 0.012 ng/mL (0.000-0.033)
[2024-01-05 22:55] LABS: Appearance Clear (Clear); Bacteria None Seen /HPF (None Seen); Bilirubin Negative (Negative); Blood Negative (Negative); Epithelial Cells None Seen /HPF (None Seen); Glucose, Urine Negative (Negative); Hyaline Casts NONE SEEN /LPF (0-2); Ketones Negative (Negative); Leukocyte Esterase Negative (Negative); Nitrite Negative (Negative); Protein,Urine Dip Negative (Negative); RBC 0-2 /HPF (0-5); Specific Gravity 1.015 (1.005-1.030); WBC 0-2 /HPF (0-5)
[2024-01-05 23:04] LABS: ADD URINE CULTURE? NO (NO)
--- NOTE | 2024-01-06 00:28 | XRAY ---
CLINICAL HISTORY: Short of breath COMPARISON: No prior studies are available for comparison. TECHNIQUE: X-ray images of the chest were obtained in anteroposterior (AP) projection. FINDINGS: Pulmonary Parenchyma: Lungs are clear bilaterally. No evidence of consolidation, collapse, or focal opacities. No evidence of pleural effusion or pleural thickening. Heart and Mediastinum: Heart size and shape are normal. No mediastinal widening or masses. No hilar or mediastinal lymphadenopathy. Bony Thorax: The bony thorax appears intact without fractures or deformities. Soft Tissues: Soft tissues overlying the chest wall are unremarkable. IMPRESSION: 1. No acute cardiopulmonary abnormalities were identified. 2. No evidence of consolidation, or collapse. Electronically Signed by: Mirna Georges MD. (01/06/2024 00:24:49 EDT)
[2024-01-06 00:56] VITALS: O2SAT 98
[2024-01-06 01:11] VITALS: BP 121/39; PULSE 66; RESP 19
== END 2024-01-06 01:24 | disposition home or self-care (01) ==
LOC: ED 20:15
DX: M79.89 Other specified soft tissue disorders (principal)
CPT/HCPCS: 36000; 36415; 71045; 80053; 81001; 83880; 84484; 85025; 85379; 93005; 93041; 94760; 99284